=== PATIENT | male | born 1965 | race Caucasian/White ===

== ENCOUNTER 2022-03-13 05:28 | Emergency (ER) | payer MEDICARE, MEDICAID ==
[~2022-03-13] VITALS: Ht 175.3 cm; Wt 109.0 kg
[2022-03-13 06:00] VITALS: BP 135/86
[2022-03-13] MEDS ORDERED: CEFTRIAXONE SODIUM 1 G/VIAL IM ONE (08:00)
[2022-03-13] MEDS ORDERED: DOXYCYCLINE HYCLATE 100MG CAPSULE PO ONE (08:00)
[2022-03-13] MEDS ORDERED: VALA100044 PO (08:56)
[2022-03-13] MEDS ORDERED: DOXY100C5 PO (08:56)
[2022-03-13] MEDS ORDERED: CEPH500C2 PO (08:56)
== END 2022-03-13 09:15 | disposition home or self-care (01) ==
LOC: ER 05:28
DX: L03.114 Cellulitis of left upper limb (principal); Z20.2 Contact with and (suspected) exposure to infections with a predominantly sexual mode of transmission
CPT/HCPCS: 73090; 96372; 99283; J0696